=== PATIENT | male | born 1975 | race Caucasian/White ===

== ENCOUNTER → 2018-06-30 13:27 | Emergency (ER) | payer OTHER ==
[~2018-06-30 13:27] MED LIST: Buprenorp/Nalox 8-2 MG FILM 1 EACH SL FILM ONE
--- NOTE | 2018-06-30 14:31 | ED ---
Substance Abuse/Use - HPI Summary HPI Summary: A 43 y/o M presents to ED with c/o being out of suboxone onset today. Pt says he 's been on it for two days and takes 24mg a day. His suboxone/script is in his father's car, who is willing to mail it back to the patient, but it won't arrive until 07/03/2017, and he is worried about not having it over the weekend. The script is good until 07/06/2017. Pt lives alone. Associated sx: dizziness, malaise. He gets his script through [facility]. - History Of Current Complaint Chief Complaint: EDDetoxRequest Stated Complaint: DETOX Time Seen by Provider: 06/30/18 14:29 Hx Obtained From: Patient Onset/Duration of Drug/ETOH Abuse: Days Ingestion History: Type/Name Of Drug - Suboxone Severity Initially: Moderate Severity Currently: Moderate Associated Signs And Symptoms: Other: - pos: malaise, dizziness - Allergies/Home Medications Allergies/Adverse Reactions: Allergies Allergy/AdvReac Type Severity Reaction Status Date / Time Penicillins Allergy Severe Hives Verified 06/30/18 13:34 vancomycin Allergy Severe Hives Verified 06/30/18 13:34 Home Medications: Home Medications Buprenorphine HCl/Naloxone HCl [Suboxone 12 mg-3 mg Sl Film] 2 film PO DAILY [History Confirmed 06/30/18] PMH/Surg Hx/FS Hx/Imm Hx Previously Healthy: Yes Endocrine/Hematology History: Denies: Hx Diabetes, Hx Thyroid Disease Cardiovascular History: Denies: Hx Hypertension Respiratory History: Denies: Hx Asthma, Hx Chronic Obstructive Pulmonary Disease (COPD) GI History: Denies: Hx Ulcer - Surgical History Surgery Procedure, Year, and Place: denies Infectious Disease History: No Infectious Disease History: Denies: Hx Clostridium Difficile, Hx Hepatitis, Hx Human Immunodeficiency Virus (HIV), Hx of Known/Suspected MRSA, Hx Shingles, Hx Tuberculosis, Hx Known/ Suspected VRE, Hx Known/Suspected VRSA, History Other Infectious Disease, Traveled Outside the US in Last 30 Days - Family History Known Family History: Positive: Other - migraines - Social History Occupation: Unemployed Lives: Alone Alcohol Use: None Hx Substance Use: Yes Substance Use Type: Reports: Other Substance Use Comment - Amount & Last Used: suboxone daily, MDMA once w/in last month Hx Tobacco Use: Yes Smoking Status (MU): Heavy Every Day Tobacco Smoker Type: Cigarettes Amount Used/How Often: ~ 1 ppd Length of Time of Smoking/Using Tobacco: started smoking ~ age [age] years old Have You Smoked in the Last Year: Yes Review of Systems Positive: Other - pos: malaise. Negative: Fever Neurological: Other - pos: dizziness All Other Systems Reviewed And Are Negative: Yes Physical Exam - Summary Physical Exam Summary: COWS: 9 Appearance: The patient is well-nourished in no acute distress and in no acute pain. Skin: The skin is warm and dry and skin color reflects adequate perfusion. HEENT: The head is normocephalic and atraumatic. The pupils are equal and reactive. The conjunctivae are clear and without drainage. Nares are patent and without drainage. Mouth reveals moist mucous membranes and the throat is without erythema and exudate. The external ears are intact. The ear canals are patent and without drainage. The tympanic membranes are intact. Neck: the neck is supple with full range of motion and non-tender. There are no carotid bruits. There is no neck vein distension. Respiratory: Chest is non-tender. Lungs are clear to auscultation and breath sounds are symmetrical and equal. Cardiovascular: Heart is regular rate and rhythm. There is no murmur or rub auscultated. There is no peripheral edema and pulses are symmetrical and equal. Abdomen: The abdomen is soft and non-tender. There are normal bowel sounds heard in all four quadrants and there is no organomegaly palpated. Musculoskeletal: There is no back tenderness noted. Extremities are non-tender with full range of motion. There is good capillary refill. There is no peripheral edema or calf tenderness elicited. Neurological: Patient is alert and oriented to person, place and time. The patient has symmetrical motor strength in all four extremities. Cranial nerves are grossly intact. Deep tendon reflexes are symmetrical and equal in all four extremities. Psychiatric: The patient has an appropriate affect and does not exhibit any anxiety or depression. Triage Information Reviewed: Yes Vital Signs On Initial Exam: Initial Vitals Temp Pulse Resp BP Pulse Ox 98.0 F 80 16 133/76 100 06/30/18 13:28 06/30/18 13:28 06/30/18 13:28 06/30/18 13:28 06/30/18 13:28 Vital Signs Reviewed: Yes Diagnostics - Vital Signs Vital Signs Temp Pulse Resp BP Pulse Ox 06/30/18 13:28 98.0 F 80 16 133/76 100 - Laboratory Lab Statement: Any lab studies that have been ordered have been reviewed, and results considered in the medical decision making process. Re-Evaluation - Re-Evaluation 1 Re-Evaluation Time: 17:09 Change: Improved Comment: After the suboxone, pt is feeling improved. Course/Dx - Course Course Of Treatment: Mr. Saenz has a history of heroin use and has been receiving Suboxone through [facility] for at least a year. His father came to visit from [place] and drove away today inadvertently taking his Suboxone in the car. His father has agreed to overnight should put back to him on Monday and he should receive it on Monday. He is in mild to moderate withdrawal at this point and given Suboxone here in the department with relief of his symptoms. He is status post a couple doses of Suboxone and hopefully will barely get through until he gets his arms or he returns here and gets more Suboxone. - Diagnoses Provider Diagnoses: Narcotic withdrawal Discharge - Sign-Out/Discharge Documenting (check all that apply): Patient Departure - D/C - Discharge Plan Condition: Stable Disposition: HOME Patient Education Materials: Narcotic Withdrawal (ED) Referrals: No Primary Care Phys,NOPCP [Primary Care Provider] - Care [facility] [Outside] [facility] [Outside] Additional Instructions: Please return to the ED if you experience new or worsening symptoms. Follow up with your primary care provider in 2-3 days. - Billing Disposition and Condition Condition: STABLE Disposition: Home - Attestation Statements Document Initiated by Scribe: Yes Documenting Scribe: Quinton Kamara Provider For Whom Scribe is Documenting (Include Credential): Dr. Maurice Ohara MD Scribe Attestation: I, janie Bernardoibed for Dr. Maurice Ohara MD on 06/30/18 at 1808. Scribe Documentation Reviewed: Yes Provider Attestation: The documentation as recorded by the Quinton thorne accurately reflects the service I personally performed and the decisions made by me, Dr. Maurice Ohara MD Status of Scribe Document: Viewed
[2018-06-30 18:16] VITALS: BP 108/22
== END | disposition home or self-care (01) ==
LOC: ED 13:27
DX: F11.23 Opioid dependence with withdrawal (principal); R53.81 Other malaise; F17.210 Nicotine dependence, cigarettes, uncomplicated
CPT/HCPCS: 99282; A9270-GY

== ENCOUNTER 2018-09-09 15:14 | Emergency (ER) | payer OTHER ==
[2018-09-09] MEDS ORDERED: Buprenorp/Nalox 8-2 MG FILM 1 EACH SL FILM ONE (17:18)
--- NOTE | 2018-09-09 17:22 | ED ---
Medical Screening - HPI Summary HPI Summary: Pt. is a 43 y.o male who presents to the ER requesting a dose of suboxone. Pt. states a few days ago he had vomiting and diarrhea he contributed to a "GI bug. " Pt. states he was attempting to take his suboxone but was vomiting it up. Pt. states he wasted a few tablets and was short. He notes GI sxs are resolved. Sxs are mild in severity. No current modifying factors. - History of Current Complaint Chief Complaint: EDPrescriptionNeeded Stated Complaint: "TOOK TOO MANY PILLS RAN OUT OF SCRIPT" PER PT Time Seen by Provider: 09/09/18 16:35 PMH/Surg Hx/FS Hx/Imm Hx Previously Healthy: Yes Endocrine/Hematology History: Denies: Hx Diabetes, Hx Thyroid Disease Cardiovascular History: Denies: Hx Hypertension Respiratory History: Denies: Hx Asthma, Hx Chronic Obstructive Pulmonary Disease (COPD) GI History: Denies: Hx Ulcer - Surgical History Surgery Procedure, Year, and Place: denies Infectious Disease History: No Infectious Disease History: Denies: Hx Clostridium Difficile, Hx Hepatitis, Hx Human Immunodeficiency Virus (HIV), Hx of Known/Suspected MRSA, Hx Shingles, Hx Tuberculosis, Hx Known/ Suspected VRE, Hx Known/Suspected VRSA, History Other Infectious Disease, Traveled Outside the US in Last 30 Days - Family History Known Family History: Positive: Other - migraines, Non-Contributory - Social History Occupation: Unemployed Lives: Alone Alcohol Use: None Hx Substance Use: Yes Substance Use Type: Reports: Other Substance Use Comment - Amount & Last Used: suboxone daily Hx Tobacco Use: Yes Smoking Status (MU): Heavy Every Day Tobacco Smoker Type: Cigarettes Amount Used/How Often: ~ 1 ppd Length of Time of Smoking/Using Tobacco: started smoking ~ age [age] years old Have You Smoked in the Last Year: Yes Review of Systems Constitutional: Negative Negative: Fever, Chills Gastrointestinal: Negative Negative: Abdominal Pain, Vomiting, Diarrhea All Other Systems Reviewed And Are Negative: Yes Physical Exam Triage Information Reviewed: Yes Vital Signs On Initial Exam: Initial Vitals Temp Pulse Resp BP Pulse Ox 99.6 F 70 16 105/76 100 09/09/18 15:17 09/09/18 15:17 09/09/18 15:17 09/09/18 15:17 09/09/18 15:17 Vital Signs Reviewed: Yes Appearance: Positive: Well-Appearing - Pt. sitting up in bed in NAD. Unkept. Clothes are dirty. Skin: Positive: Warm, Dry Head/Face: Positive: Normal Head/Face Inspection Eyes: Positive: Normal, EOMI Neck: Positive: Supple Respiratory/Lung Sounds: Positive: Clear to Auscultation, Breath Sounds Present Cardiovascular: Positive: Normal, RRR Abdomen Description: Positive: Nontender, Soft Musculoskeletal: Positive: Normal, Strength/ROM Intact Neurological: Positive: Normal, CN Intact II-III Psychiatric: Positive: Affect/Mood Appropriate Diagnostics - Vital Signs Vital Signs Temp Pulse Resp BP Pulse Ox 09/09/18 15:17 99.6 F 70 16 105/76 100 - Laboratory Lab Statement: Any lab studies that have been ordered have been reviewed, and results considered in the medical decision making process. Course/Dx - Course Course Of Treatment: Pt. presenting requesting a dose of suboxone after a recent GI virus. CONSTRUCTION REPRESENTATIVE reviewed and is consistent. I spoke with pharmacist who notes pharmacist is able to dispense dose for pt. to take in the ED. Pt. given dose of suboxone and dc home. To call Dr. Gibbs tomorrow for apt. - Diagnoses Provider Diagnoses: Opioid dependence, Medication requested Discharge - Sign-Out/Discharge Documenting (check all that apply): Patient Departure Patient Received Moderate/Deep Sedation with Procedure: No - Discharge Plan Condition: Good Disposition: HOME Referrals: Mercedes Gibbs MD [Medical Doctor] - Additional Instructions: Call Dr. Gibbs tomorrow for an appointment Return to ER if symptoms change or worsen - Billing Disposition and Condition Condition: GOOD Disposition: Home
[2018-09-09 17:33] VITALS: BP 126/79
== END 2018-09-09 17:32 | disposition home or self-care (01) ==
LOC: ED 15:14
DX: F11.20 Opioid dependence, uncomplicated (principal); F17.210 Nicotine dependence, cigarettes, uncomplicated
CPT/HCPCS: 99281; A9270-GY

== ENCOUNTER 2018-10-02 18:43 | Emergency (ER) | payer OTHER ==
[2018-10-02 19:07] VITALS: BP 115/77
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
== END 2018-10-02 20:16 | disposition home or self-care (01) ==
LOC: UCCORT 18:43
DX: S61.431A Puncture wound without foreign body of right hand, initial encounter (principal); X58.XXXA Exposure to other specified factors, initial encounter; Y92.9 Unspecified place or not applicable; Z51.89 Encounter for other specified aftercare; Z88.0 Allergy status to penicillin; Z88.1 Allergy status to other antibiotic agents; F17.210 Nicotine dependence, cigarettes, uncomplicated
CPT/HCPCS: 99211; G0463

== ENCOUNTER 2019-04-14 07:35 | Emergency (ER) | payer OTHER ==
[2019-04-14] MEDS ORDERED: NS 0.9% 1000 ML** 1,000 ML IV ONE (07:45)
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
[2019-04-14 08:31] LABS: ABS Eosinophils 0.1 10^3/ul (0-0.6); ABS Lymphocytes 1.2 10^3/ul (1.0-4.8); ABS Monocytes 0.4 10^3/ul (0-0.8); ABS Neutrophils 4.1 10^3/ul (1.5-7.7); Eosinophil % 1.8 %; Hematocrit 46 % (42-52); Hemoglobin 15.1 g/dL (14.0-18.0); Lymphocyte % 21.4 %; Mean Corpuscular HGB Conc 33 g/dL (31-36); Mean Corpuscular Hemoglobin 26 pg (27-31); Mean Corpuscular Volume 79 fL (80-94); Mean Platelet Volume 7.6 fL (7.4-10.4); Nucleated Red Blood Cells % 0.4; Platelet Count 259 10^3/uL (150-450); Red Cell Distribution Width 18 % (10-15); White Blood Count 5.8 10^3/uL (3.5-10.8)
[2019-04-14] MEDS ORDERED: Iodixanol* (CONTRAST) 320 MG/ML 100 ML SDV IV ONE (08:33)
[2019-04-14 08:42] LABS: ALT 16 U/L (7-52); AST 20 U/L (13-39); Albumin 4.6 g/dL (3.2-5.2); Albumin/Globulin Ratio 1.2 (1-3); Alkaline Phosphatase 80 U/L (34-104); Anion Gap 7 mmol/L (2-11); BUN/Creatinine Ratio 12.3 (8-20); Blood Urea Nitrogen 8 mg/dL (6-24); CO2 Carbon Dioxide 28 mmol/L (22-32); Calcium 10.1 mg/dL (8.6-10.3); Chloride 102 mmol/L (101-111); Creatine Kinase 84 U/L (10-223); EGFR African American 161.5 (>60); EGFR Non-African American 133.4 (>60); Glucose 98 mg/dL (70-100); Sodium 137 mmol/L (135-145); Total Protein 8.6 g/dL (6.4-8.9)
[2019-04-14 08:56] LABS: Alcohol < 10 mg/dL (<10)
[2019-04-14] MEDS ORDERED: Iodixanol* (CONTRAST) 320 MG/ML 100 ML SDV IV SCH (09:00)
[2019-04-14 10:32] LABS: Urine Appearance Clear; Urine Bacteria Absent (Absent); Urine Bilirubin Negative (Negative); Urine Blood Negative (Negative); Urine Color Yellow; Urine Glucose Negative (Negative); Urine Ketones Negative (Negative); Urine Nitrite Negative (Negative); Urine Protein Negative (Negative); Urine Red Blood Cell Trace(0-2/hpf) (Absent); Urine Specific Gravity 1.021 (1.010-1.030); Urine Urobilinogen Negative (Negative); Urine White Blood Cell Trace(0-5/hpf) (Absent)
[2019-04-14 10:56] LABS: Urine Benzodiazepine Screen None Detected (None Detect); Urine Opiates Screen None Detected (None Detect)
[2019-04-14] MEDS ORDERED: Sulfamethox/Trimethoprim DS 800/160* TAB PO ONE (11:17)
[2019-04-14] MEDS ORDERED: Ketorolac INJ* 30 MG/ML 1 ML VIAL IV PUSH ONE (11:18)
[2019-04-14 12:25] VITALS: BP 110/73
== END 2019-04-14 12:15 | disposition home or self-care (01) ==
LOC: ED 07:35
DX: S02.2XXA Fracture of nasal bones, initial encounter for closed fracture (principal); S01.21XA Laceration without foreign body of nose, initial encounter; S01.112A Laceration without foreign body of left eyelid and periocular area, initial encounter; V49.9XXA Car occupant (driver) (passenger) injured in unspecified traffic accident, initial encounter; Y92.410 Unspecified street and highway as the place of occurrence of the external cause; F17.210 Nicotine dependence, cigarettes, uncomplicated; Z88.0 Allergy status to penicillin; Z88.1 Allergy status to other antibiotic agents
CPT/HCPCS: 12011; 36415; 70450; 70486; 71260; 72125; 80053; 80307; 80320; 81003; 82550; 83605; 84484; 85025; 87086; 93005; 96361; 96374; 99282; A9270-GY; G0480; J1885; Q9967

== ENCOUNTER 2019-08-18 19:58 | Emergency (ER) | payer OTHER ==
[2019-08-18 20:36] VITALS: BP 114/79
[2019-08-18] MEDS ORDERED: Ibuprofen TAB* 600 MG PO ONE ×2 (21:11)
--- NOTE | 2019-08-18 21:13 | UC ---
General HPI - HPI Summary HPI Summary: patient is here with cc of sore legs he is hoping for an rx for ibuprofen--due to not having any money - History of Current Complaint Chief Complaint: UCLowerExtremity Stated Complaint: LEG CRAMPS Time Seen by Provider: 08/18/19 21:07 Hx Obtained From: Patient Onset/Duration: Sudden Onset, Lasting Days Timing: Constant Pain Intensity: 4 Pain Location at: both legs - Allergy/Home Medications Allergies/Adverse Reactions: Allergies Allergy/AdvReac Type Severity Reaction Status Date / Time Penicillins Allergy Severe Hives Verified 08/18/19 20:36 vancomycin Allergy Severe Hives Verified 08/18/19 20:36 Home Medications: Home Medications Buprenorphine HCl/Naloxone HCl [Suboxone 12 mg-3 mg Sl Film] 24 mg PO DAILY [History Confirmed 10/02/18] Ibuprofen TAB* [Motrin TAB* 600 MG] 600 mg PO Q8H PRN #30 tab 04/14/19 [Rx Confirmed 08/18/19] Ibuprofen TAB* [Motrin TAB* 600 MG] 600 mg PO Q6H PRN #30 tab 08/18/19 [Rx] PMH/Surg Hx/FS Hx/Imm Hx Previously Healthy: No - Opiate use disorder on suboxone - Surgical History Surgical History: None Surgery Procedure, Year, and Place: denies Other Surgical History: Dental extractions. - Family History Known Family History: Positive: Other - migraines, Non-Contributory - Social History Occupation: Employed Full-time Lives: With Family Alcohol Use: Rare Substance Use Type: Marijuana Substance Use Comment - Amount & Last Used: suboxone daily Smoking Status (MU): Heavy Every Day Tobacco Smoker Type: Cigarettes Amount Used/How Often: ~ 1 ppd Length of Time of Smoking/Using Tobacco: started smoking ~ age [age] years old Have You Smoked in the Last Year: Yes Household Exposure Type: Cigarettes - Immunization History Most Recent Influenza Vaccination: 2014 Most Recent Tetanus Shot: 2015 Review of Systems All Other Systems Reviewed And Are Negative: Yes Constitutional: Positive: Negative Skin: Positive: Negative Eyes: Positive: Negative ENT: Positive: Negative Respiratory: Positive: Negative Cardiovascular: Positive: Negative Gastrointestinal: Positive: Negative Genitourinary: Positive: Negative Motor: Positive: Negative Neurovascular: Positive: Negative Musculoskeletal: Positive: Arthralgia - both legs---patient reports this is a chonic issue he takes ibuprofen for Neurological/Mental Status: Positive: Negative Psychological: Positive: Negative Is Patient Immunocompromised?: No Physical Exam Triage Information Reviewed: No Appearance: No Pain Distress, Thin, Other: - appears older than stated age Vital Signs: Initial Vital Signs Temp 98.3 F 08/18/19 20:31 Pulse 83 08/18/19 20:31 Resp 18 08/18/19 20:31 BP 114/79 08/18/19 20:31 Pulse Ox 99 08/18/19 20:31 Vital Signs Reviewed: Yes Eye Exam: Normal Eyes: Positive: Conjunctiva Clear ENT Exam: Normal ENT: Positive: Normal ENT inspection, Hearing grossly normal. Negative: Trismus , Muffled voice, Hoarse voice Dental Exam: Normal Neck exam: Normal Neck: Positive: Supple, Nontender Respiratory Exam: Normal Respiratory: Positive: Chest non-tender, No respiratory distress, No accessory muscle use Cardiovascular Exam: Normal Cardiovascular: Positive: RRR, Brisk Capillary Refill Musculoskeletal Exam: Normal Musculoskeletal: Positive: Strength Intact, ROM Intact Neurological Exam: Normal Neurological: Positive: Alert, Muscle Tone Normal Psychological Exam: Normal Skin Exam: Normal Course/Dx - Course Course Of Treatment: ibuprofen now and rx referral to pcp - Diagnoses Provider Diagnosis: Encounter for medication refill, Leg pain, bilateral Discharge ED - Sign-Out/Discharge Documenting (check all that apply): Patient Departure All imaging exams completed and their final reports reviewed: No Studies - Discharge Plan Condition: Stable Disposition: HOME Prescriptions: Ibuprofen TAB* [Motrin TAB* 600 MG] 600 mg PO Q6H PRN #30 tab PRN Reason: pain Patient Education Materials: Leg Pain (ED) Referrals: [facility] [Outside] [facility] [Outside] [facility] [Outside] [facility],. [Z.BUSINESS, APPLICATION, OTHER] - - Billing Disposition and Condition Condition: STABLE Disposition: Home - Attestation Statements Provider Attestation: This patient was not seen by me. I was available for consult Chart reviewed [place]
== END 2019-08-18 21:28 | disposition home or self-care (01) ==
LOC: UCCORT 19:58
DX: M79.605 Pain in left leg (principal); M79.604 Pain in right leg; Z76.0 Encounter for issue of repeat prescription; Z88.1 Allergy status to other antibiotic agents; Z88.0 Allergy status to penicillin; F17.210 Nicotine dependence, cigarettes, uncomplicated
CPT/HCPCS: 99212; A9270-GY; G0463

== ENCOUNTER 2019-08-26 20:45 | Emergency (ER) | payer OTHER ==
--- NOTE | 2019-08-26 21:28 | UC ---
Ear Complaint HPI - HPI Summary HPI Summary: Pt presents requesting flush left ear. states feels plugged and hearing muffled. Pt has had same before pt without other concerns - no sore throat, fever, rash, cough pt medications as entered EMR reviewed this visit - History of Current Complaint Stated Complaint: EARS PLUGGED Hx Obtained From: Patient - Allergies/Home Medications Allergies/Adverse Reactions: Allergies Allergy/AdvReac Type Severity Reaction Status Date / Time Penicillins Allergy Severe Hives Verified 08/26/19 21:33 vancomycin Allergy Severe Hives Verified 08/26/19 21:33 Home Medications: Home Medications Buprenorphine HCl/Naloxone HCl [Suboxone 12 mg-3 mg Sl Film] 24 mg PO DAILY [History Confirmed 08/26/19] Carbamide Peroxide 6.5% OTIC* [DEBROX 6.5% Otic*] 5 drop LEFT EAR DAILY #1 bottle 08/26/19 [Rx] PMH/Surg Hx/FS Hx/Imm Hx Previously Healthy: Yes - Surgical History Surgical History: None Surgery Procedure, Year, and Place: denies Other Surgical History: Dental extractions. - Family History Known Family History: Positive: Other - migraines, Non-Contributory - Social History Occupation: Unemployed Lives: Alone Alcohol Use: Rare Substance Use Type: Marijuana Substance Use Comment - Amount & Last Used: suboxone daily Smoking Status (MU): Heavy Every Day Tobacco Smoker Type: Cigarettes Amount Used/How Often: ~ 1 ppd Length of Time of Smoking/Using Tobacco: started smoking ~ age [age] years old Have You Smoked in the Last Year: Yes Household Exposure Type: Cigarettes - Immunization History Most Recent Influenza Vaccination: 2014 Most Recent Tetanus Shot: 2014 Review of Systems All Other Systems Reviewed And Are Negative: No Skin: Positive: Negative Eyes: Positive: Negative ENT: Positive: Sore Throat, Other - left ear plugged Physical Exam - Summary Physical Exam Summary: Vital Signs Reviewed: Yes A+Ox3, no distress Eyes: Conjunctiva Clear, GAYATRI. EOM intact and full ENT: Hearing grossly normal left ear plugged with cerumen. 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 Skin: Positive: no rash, no ecchymosis Triage Information Reviewed: Yes Ear Complaint Course/Dx - Course Course Of Treatment: Pt present with cerumen impaction left ear no other complaints RN irrigated with water - I used manual debridement and removed pt states feels better, hearing better TM visualized - no infection - Differential Dx/Diagnosis Provider Diagnosis: Cerumen impaction Discharge ED - Sign-Out/Discharge Documenting (check all that apply): Patient Departure All imaging exams completed and their final reports reviewed: No Studies - Discharge Plan Condition: Stable Disposition: HOME Prescriptions: Carbamide Peroxide 6.5% OTIC* [DEBROX 6.5% Otic*] 5 drop LEFT EAR DAILY #1 bottle Patient Education Materials: Cerumen Impaction (ED) Referrals: [facility] [Outside] No Primary Care Phys,NOPCP [Primary Care Provider] - Additional Instructions: - use ear drops as prescribed - follow-up with your primary doctor - contact your doctor to arrange a follow-up ear irrigation at your doctor - call your doctor or return with questions - Billing Disposition and Condition Condition: STABLE Disposition: Home
[2019-08-26 21:36] VITALS: BP 127/86
== END 2019-08-26 22:35 | disposition home or self-care (01) ==
LOC: UCCORT 20:45
DX: H61.22 Impacted cerumen, left ear (principal); J02.9 Acute pharyngitis, unspecified; F17.210 Nicotine dependence, cigarettes, uncomplicated
CPT/HCPCS: 69210; 99213; G0463